=== PATIENT | female | born 1960 | race Caucasian/White ===

== ENCOUNTER 2023-08-19 09:58 | Inpatient (IN) ==
[~2023-08-19 09:58] MED LIST: Buffered Lidocaine 1% SYRIN 1 ml INTRADERM ONE; Famotidine IV 10 MG/ML 2 ml VIAL (20 mg) IV ONE; Lactated Ringers 1000 ml BAG 1,000 ML IV SCH; Lidocaine 2% PF 5 ML VIAL ONE; Midazolam 2 mg/2 ml VIAL 1 mg/ml 2 ml VIAL (2 mg) ONE; Phenylephrine IV 10 MG/ML 1 ml VIAL ONE; Propofol 10 MG/ML 20 ML BTL ONE; Rocuronium 50 mg VIAL 10 mg/ml 5 ml VIAL (50 mg) ONE; fentaNYL 100 mcg/2 ml 50 MCG/ML VIAL ONE
[2023-08-19] MEDS ORDERED: ROPIVACAINE 5 MG/ML 30 ML BTL (0.5%) ONE (10:35)
[2023-08-19] MEDS ORDERED: ceFAZolin 2 GM in NS PREMIX 2 GM/100 ML BAG IVPB ONE (11:07)
[2023-08-19] MEDS ORDERED: Tranexamic Acid 1 GM/100ML BAG 2,000 MG/200 ML BAG IV ONE (11:07)
[2023-08-19] MEDS ORDERED: Famotidine IV 10 MG/ML 2 ml VIAL (20 mg) ONE (11:07)
[2023-08-19 11:21] LABS: Rapid COVID-19 Molecular Undetected (Undetected)
[2023-08-19] MEDS ORDERED: Scopolamine 1 mg/72hr PATCH ONE (12:04)
[2023-08-19] MEDS ORDERED: Glycopyrrolate IV 0.2 MG/ML 1 ML VIAL ONE (12:42)
[2023-08-19] MEDS ORDERED: Ondansetron 4 mg VIAL 2 MG/ML 2 ml VIAL ONE ×2 (12:44→15:38)
[2023-08-19] MEDS ORDERED: Dexamethasone IV 4 MG/ML VIAL 1 ml VIAL ONE (12:44)
[2023-08-19] MEDS ORDERED: Rocuronium 50 mg VIAL 10 mg/ml 5 ml VIAL (50 mg) ONE (12:48)
[2023-08-19] MEDS ORDERED: fentaNYL 100 mcg/2 ml 50 MCG/ML VIAL ONE (13:03)
[2023-08-19] MEDS ORDERED: HYDROmorphone 0.5 MG/0.5 ML SYRINGE ONE ×3 (13:06→14:23)
[2023-08-19] MEDS ORDERED: Lactulose 30 ml UDC PO PRN (13:12)
[2023-08-19] MEDS ORDERED: Ondansetron ODT 4 mg TAB 4 MG TAB PO PRN (13:12)
[2023-08-19] MEDS ORDERED: Magnesium Hydroxide LIQ 30 ML UDC PO PRN (13:12)
[2023-08-19] MEDS ORDERED: Morphine 2 MG/ML SYRINGE IV PRN (13:12)
[2023-08-19] MEDS ORDERED: Ondansetron 4 mg VIAL 2 MG/ML 2 ml VIAL IV PRN ×2 (13:12→13:36)
[2023-08-19] MEDS ORDERED: Naloxone 0.4 mg VIAL 0.4 mg/ml 1 ml VIAL IV PRN (13:36)
[2023-08-19] MEDS ORDERED: HYDROmorphone 1 MG/1 ML SYRINGE IV PRN (13:36)
[2023-08-19] MEDS ORDERED: Scopolamine 1 mg/72hr PATCH TRANSDERM PRN (13:36)
[2023-08-19] MEDS ORDERED: fentaNYL 100 mcg/2 ml 50 MCG/ML VIAL IV PRN (13:36)
[2023-08-19] MEDS ORDERED: Acetaminophen IV 1 GM/100ML 1,000 MG/100 ML BAG IV ONE (13:47)
[2023-08-19] MEDS ORDERED: Lactated Ringers 1000 ml BAG 1,000 ML IV SCH (14:00)
[2023-08-19] MEDS: CYCLOSPORINE BOTH EYES SCH (20:14)
[2023-08-19] MEDS: Magnesium Hydroxide LIQ 30 ML UDC PO SCH (20:14)
[2023-08-19] MEDS: ceFAZolin 1 GM ADVAN 1 GM in NS 0.9% 50 ML 50 ML IVPB SCH (20:16)
[2023-08-20] MEDS: ceFAZolin 1 GM ADVAN 1 GM in NS 0.9% 50 ML 50 ML IVPB SCH ×2 (04:55→12:29)
[2023-08-20 07:08] LABS: Hematocrit 32.2 % (35-45); Hemoglobin 11.1 g/dL (11.5-14.3); Platelet Count 164 10^3/uL (150-450)
[2023-08-20 07:22] LABS: Calcium 8.9 mg/dL (8.6-10.3); Creatinine, Serum 0.82 mg/dL (0.51-0.95); Potassium 4.6 mmol/L (3.5-5.0); eGFR CKD-EPI 79.8 (>60)
[2023-08-20] MEDS: Magnesium Hydroxide LIQ 30 ML UDC PO SCH (07:58)
[2023-08-20] MEDS: CYCLOSPORINE BOTH EYES SCH (08:00)
[2023-08-20] MEDS ORDERED: Vitamin THERAPEUTIC TAB PO SCH (09:00)
[2023-08-20 10:10] VITALS: BP 121/67
== END 2023-08-20 13:20 | disposition home or self-care (01) | DRG 301 ==
LOC: INTOOBSV 09:58 → AA 09:58 → SSU 17:51
PROVIDERS: ADMIT Orthopaedic Surgery Adult Reconstructive Orthopaedic Surgery; ATTEND Orthopaedic Surgery Adult Reconstructive Orthopaedic Surgery

== ENCOUNTER 2023-11-17 21:14 | Observation (INO) ==
[2023-11-17] MEDS ORDERED: Iodixanol (CONTRAST) 320 MG/ML 100 ML SDV IV ONE (21:32)
[2023-11-17 22:40] LABS: ABS Eosinophils 0.1 10^3/uL (0.0-0.5); ABS Monocytes 0.5 10^3/uL (0.0-0.9); ABS Neutrophils 3.1 10^3/uL (1.5-7.6); ABS Nucleated RBC 0.01 10^3/ul; Eosinophil % 2.5 %; Hemoglobin 13.3 g/dL (11.5-14.3); Lymphocyte % 34.6 %; Mean Corpuscular Hemoglobin 29.3 pg (27-33); Mean Corpuscular Hgb Conc 34.1 g/dL (31-36); Mean Corpuscular Volume 85.8 fL (80-97); Mean Platelet Volume 7.3 fL (7.5-11.2); Nucleated Red Blood Cells % 0.1 %/100WBC (0.0-0.8); Platelet Count 212 10^3/uL (150-450); Red Blood Count 4.54 10^6/uL (3.63-4.92); Red Cell Distribution Width 15.2 % (12-17); White Blood Count 5.8 10^3/uL (3.8-11.8)
[2023-11-17 22:40] LABS: Urine Appearance Clear; Urine Bilirubin Negative (Negative); Urine Blood Negative (Negative); Urine Color Colorless; Urine Glucose Negative (Negative); Urine Ketones Negative (Negative); Urine Nitrite Negative (Negative); Urine Protein Negative (Negative); Urine Urobilinogen Negative (Negative); Urine pH 6.5 (5.0-8.0)
[2023-11-17 22:47] LABS: Activated Partial Thrombo Time 33.2 seconds (26.0-38.0); INR 0.95 (0.83-1.13)
[2023-11-17 23:00] LABS: Urine Bacteria Absent /HPF (Absent); Urine Red Blood Cell Trace(0-2/hpf) /HPF (0-Trace); Urine Squamous Epithelial Cell Present /HPF (Absent); Urine White Blood Cell 1+(6-10/hpf) /HPF (0-Trace)
[2023-11-17 23:25] LABS: Albumin 4.8 g/dL (3.2-5.2); Albumin/Globulin Ratio 1.8 (1-3); Calcium 9.7 mg/dL (8.6-10.3); Creatinine, Serum 0.84 mg/dL (0.51-0.95); Direct Bilirubin 0.1 mg/dL (0.03-0.18); Globulin 2.6 g/dL (2-4); Indirect Bilirubin 0.4 mg/dL (0.3-1.0); Magnesium 1.9 mg/dL (1.9-2.7); Potassium 4.2 mmol/L (3.5-5.0); Total Bilirubin 0.5 mg/dL (0.2-1.0); Total Protein 7.4 g/dL (6.4-8.9); eGFR CKD-EPI 77.6 (>60)
[2023-11-17 23:40] LABS: High Sensitivity Troponin 1 Hr 4 pg/mL (<15)
[2023-11-18] MEDS ORDERED: Lorazepam PYXIS KEY PRN (09:07)
[2023-11-18] MEDS: CMCS:Cyclosporine 0.05% OPHTH (NF) 0.4 ML VIAL BOTH EYES SCH (10:28)
[2023-11-18] MEDS: diazePAM INJ CARPUJECT 5 MG/ML SYRINGE IV ONE (20:32)
[2023-11-19] MEDS: LORazepam 2 mg VIAL 1 ml IV PUSH ONE (00:31)
[2023-11-19] MEDS: diazePAM INJ CARPUJECT 5 MG/ML SYRINGE IV ONE (00:31)
[2023-11-19 14:45] VITALS: BP 129/75
[2023-11-19] MEDS ORDERED: Sulfur Hexaflouride MICROSPHR 25 MG VIAL ONE (16:00)
== END 2023-11-19 18:15 | disposition home or self-care (01) ==
LOC: EDHOLD 21:14 → ED 21:14 → SUATTDRO 11-18 01:07 → MEDTELE 11-18 10:08
PROVIDERS: ADMIT Internal Medicine; ATTEND Internal Medicine